=== PATIENT | male | born 1955 | race Caucasian/White ===

== ENCOUNTER → 2016-06-17 | Outpatient (CLI) | payer OTHER ==
[~2016-06-17] MED LIST: ACT30 PO; GLC500 PO; GLY/5 PO
[2016-06-18 06:46] LABS: ESTIMATED AVERAGE GLUCOSE 246 mg/dl; HA1C FLAG Normal (Normal)
== END | disposition home or self-care (01) ==
LOC: C.LAB1850 15:07
PROVIDERS: ATTEND Nurse Practitioner Adult Health
DX: E11.65 Type 2 diabetes mellitus with hyperglycemia (principal)

== ENCOUNTER → 2016-06-24 | Outpatient (CLI) | payer OTHER ==
[2016-06-24 16:54] LABS: LYME DISEASE AB IGG NEG (NEG)
[2016-06-24 16:55] LABS: LYME DISEASE AB IGM EQUIVOCAL (NEG)
[2016-06-30 00:24] LABS: 18KDIGG BAND NONREACTIVE (NONREACTIVE); 23KDIGG BAND NONREACTIVE (NONREACTIVE); 23KDIGM BAND NONREACTIVE (NONREACTIVE); 28KDIGG BAND NONREACTIVE (NONREACTIVE); 30KDIGG BAND NONREACTIVE (NONREACTIVE); 39KDIGG BAND NONREACTIVE (NONREACTIVE); 39KDIGM BAND NONREACTIVE (NONREACTIVE); 41KDIGG BAND REACTIVE (NONREACTIVE); 41KDIGM BAND NONREACTIVE (NONREACTIVE); 45KDIGG BAND NONREACTIVE (NONREACTIVE); 58KDIGG BAND NONREACTIVE (NONREACTIVE); 66KDIGG BAND NONREACTIVE (NONREACTIVE); 93KDIGG BAND NONREACTIVE (NONREACTIVE)
== END | disposition home or self-care (01) ==
LOC: C.LAB1850 14:03
PROVIDERS: ATTEND Family Medicine
DX: Z77.21 Contact with and (suspected) exposure to potentially hazardous body fluids (principal); T14.8 Other injury of unspecified body region; W57.XXXA Bitten or stung by nonvenomous insect and other nonvenomous arthropods, initial encounter

== ENCOUNTER → 2016-09-16 | Outpatient (CLI) | payer OTHER ==
[2016-09-16 14:51] LABS: ALT/SGPT 26 U/L (12-78); BLOOD UREA NITROGEN 19 mg/dl (7-18); BUN/CREATININE RATIO 17.6 (10-20); CALCIUM 9.3 mg/dl (8.5-10.1); CARBON DIOXIDE 25 mmol/L (21-32); CHLORIDE 106 mmol/L (98-107); CHOLESTEROL 178 mg/dl (0-200); GLUCOSE 182 mg/dl (70-99); POTASSIUM 4.8 mmol/L (3.5-5.1); SODIUM 140 mmol/L (136-145); TRIGLYCERIDES 209 mg/dl (0-150); VERY LOW DENSITY LIPOPROT CALC 42 mg/dl
[2016-09-16 15:01] LABS: ALB/GLOB RATIO 0.9 (0.9-2); ALKALINE PHOSPHATASE 74 U/L (45-117); AST/SGOT 15 U/L (15-37); CHOLESTEROL/HDL RATIO 4.5; HDL CHOLESTEROL 40 mg/dl; LDL CHOLESTEROL CALCULATED 96 mg/dl
[2016-09-16 15:15] LABS: ESTIMATED AVERAGE GLUCOSE 206 mg/dl; HA1C FLAG Normal (Normal)
[2016-09-16 15:29] LABS: RATIO 61.4 mcg/mg (0-30.0)
== END | disposition home or self-care (01) ==
LOC: C.LAB1850 13:11
PROVIDERS: ATTEND Nurse Practitioner Adult Health
DX: E78.5 Hyperlipidemia, unspecified (principal); E11.65 Type 2 diabetes mellitus with hyperglycemia; E03.9 Hypothyroidism, unspecified; E83.52 Hypercalcemia

== ENCOUNTER → 2016-12-25 | Outpatient (CLI) | payer OTHER ==
[2016-12-25 17:42] LABS: RATIO 26.2 mcg/mg (0-30.0)
[2016-12-26 07:37] LABS: ESTIMATED AVERAGE GLUCOSE 189 mg/dl; HA1C FLAG Normal (Normal)
== END | disposition home or self-care (01) ==
LOC: C.LAB1850 15:27
PROVIDERS: ATTEND Nurse Practitioner Adult Health
DX: E11.65 Type 2 diabetes mellitus with hyperglycemia (principal); Z79.4 Long term (current) use of insulin

== ENCOUNTER → 2017-03-23 | Outpatient (CLI) | payer OTHER ==
--- NOTE | 2017-03-25 08:55 | POLYSOMNOGRAPH REPORT ---
CLINICAL DATA: A 61-year-old male with BMI of [address] Weinberg and Janet Howe for evaluation of insomnia and daytime somnolence. He used to work on third shift and still has difficulty sleeping normally. On the evening of 03/23/2017, a home sleep apnea test was performed using a [employer] type 3 monitor. RECORDING RESULTS: Total recording time was 9.6 hours. The patient's monitoring time and estimated sleep time was 8.1 hours. RESPIRATORY DATA: There was no evidence of clinically significant sleep apnea/hypopnea seen. The ANNABELLA was 2.4. There was 1 central apneic episode and 18 hypopneic episodes recorded. The longest respiratory event was 22 seconds. OXIMETRY DATA: Transient hypoxemia was seen. Oxygen adore was 85%. Mean saturation was 93%. Time below 89% was 4 minutes. HEART RATE DATA: Heart rates ranged from 40-63 beats per minute. SNORING DATA: Snoring was recorded intermittently throughout the night. IMPRESSION: No evidence of clinically significant sleep apnea/hypopnea or nocturnal hypoxemia to explain this patient's symptoms. RECOMMENDATIONS: The patient should continue to practice good sleep hygiene. If insomnia is considered as the diagnosis, treatment for insomnia may need to be considered. IMTIAZ
== END | disposition home or self-care (01) ==
LOC: C.NEUR 11:11
PROVIDERS: ATTEND Internal Medicine
DX: R40.0 Somnolence (principal); G47.9 Sleep disorder, unspecified

== ENCOUNTER → 2017-09-03 | Outpatient (CLI) | payer OTHER | END | disposition home or self-care (01) | LOC: C.LAB1850 16:24 | PROVIDERS: ATTEND Internal Medicine | DX: Z12.5 Encounter for screening for malignant neoplasm of prostate (principal); E11.65 Type 2 diabetes mellitus with hyperglycemia ==

== ENCOUNTER → 2018-01-03 | Outpatient (CLI) | payer OTHER ==
[2018-01-03 17:32] LABS: ALKALINE PHOSPHATASE 71 U/L (45-117); ALT/SGPT 30 U/L (12-78); AST/SGOT 24 U/L (15-37); BLOOD UREA NITROGEN 19 mg/dl (7-18); CALCIUM 9.5 mg/dl (8.5-10.1); CARBON DIOXIDE 28 mmol/L (21-32); CHOLESTEROL 185 mg/dl (0-200); CREATININE 1.48 mg/dl (0.60-1.40); GLUCOSE 149 mg/dl (70-99); LDL CHOLESTEROL CALCULATED 116 mg/dl; POTASSIUM 4.6 mmol/L (3.5-5.1); SODIUM 140 mmol/L (136-145); TOTAL PROTEIN 8.1 gm/dl (6.4-8.2)
[2018-01-04 06:07] LABS: HEMOGLOBIN A1C 7.1 % (4.5-5.6)
== END | disposition home or self-care (01) ==
LOC: C.LAB1850 15:35
PROVIDERS: ATTEND Nurse Practitioner Adult Health
DX: Z00.00 Encounter for general adult medical examination without abnormal findings (principal); E78.5 Hyperlipidemia, unspecified; E11.65 Type 2 diabetes mellitus with hyperglycemia; E03.9 Hypothyroidism, unspecified; E55.9 Vitamin D deficiency, unspecified

== ENCOUNTER 2024-02-17 16:21 | Observation (INO) ==
[2024-02-17 16:57] LABS: Basophils # (auto) 0.05 K/uL (0.00-0.20); Basophils % (auto) 0.6 %; Eosinophils # (auto) 0.14 K/uL (0.00-0.50); Eosinophils % (auto) 1.7 %; Hematocrit (blood only) 41.5 % (42.0-52.0); Hemoglobin 13.2 g/dl (14.0-18.0); Immature Granulocytes # (auto) 0.01 K/uL (0.01-0.20); Immature Granulocytes % (auto) 0.1 %; Lymphocytes # (auto) 1.68 K/uL (1.20-3.40); Lymphocytes % (auto) 20.8 %; Mean Corpuscular Hemoglobin 29.2 pg (25.0-34.0); Mean Corpuscular Hgb Conc 31.8 g/dL (32.0-36.0); Mean Corpuscular Volume 91.8 fL (80.0-100.0); Mean Platelet Volume 10.7 fL (9.4-12.4); Monocytes # (auto) 0.55 K/uL (0.11-0.59); Monocytes % (auto) 6.8 %; Neutrophils # (auto) 5.66 K/uL (1.40-6.50); Platelet Count 141 K/uL (130-400); RDW Coefficient of Variation 12.8 % (11.5-14.5); Red Blood Count 4.52 M/uL (4.70-6.10); White Blood Count 8.09 K/ul (4.8-10.8)
[2024-02-17 17:28] LABS: Albumin Globulin Ratio 1.3 (0.9-2); BUN Creatinine Ratio 16.7 (10-20); Bilirubin,Total 0.5 mg/dl (0.2-1.0); Calcium 8.9 mg/dl (8.6-10.3); Creatinine Clr Calc Pharmacy 41.8 ml/min; Est GFR (African American) 33.1 ml/min; Est GFR (Non-African American) 28.6 ml/min; Magnesium 1.6 mg/dl (1.7-2.4); Potassium 4.9 mmol/L (3.5-5.1)
--- NOTE | 2024-02-17 17:28 | XRay Report ---
XR chest 1V not portable HISTORY: 68 years-old Male Sepsis COMPARISON: CT 02/15/2024 TECHNIQUE: AP view of the chest FINDINGS: Cardiomediastinal and hilar silhouettes are within normal limits. Eventration of the right diaphragm. Bones appear grossly intact. IMPRESSION: No acute process. ACT 112: Negative or not required by law. The above report was generated using voice recognition software. It may contain grammatical, syntax o r spelling errors. Electronically signed by: Fransisco Briscoe M.D. 02/17/2024 5:26 PM
[2024-02-17 17:30] LABS: Partial Thromboplastin Time 26 Seconds (21-31); Prothrombin Time 11.2 Seconds (9.0-12.0)
[2024-02-17 17:33] LABS: Troponin I High Sensitivity 10.5 pg/ml (0-20)
[2024-02-17 17:38] LABS: Appearance Urine Clear (Clear); Bacteria Urine Automated None Seen (None Seen); Bilirubin Urine Negative (Negative); Blood Urine Trace (Negative); Color Urine Yellow; Epithelial Cell Urine Auto 0-2 /hpf (0-2); Glucose Urine UA 3+ (Negative); Ketones Urine Trace (Negative); Leukocyte Esterase Urine Negative (Negative); Nitrite Urine Negative (Negative); Protein Urine 2+ (Negative); RBC Urine Automated 0-2 /hpf (0-2); Specific Gravity Urine 1.025 (1.000-1.030); Urobilinogen Urine Negative (Negative); WBC Urine Automated 0-5 /hpf (0-5)
[2024-02-17] MEDS: SODIUM CHLORIDE 0.9% 2,000 ML IV ONE (18:16)
--- NOTE | 2024-02-17 18:54 | Emergency Department Note ---
Impression & Plan LOU (acute kidney injury), Hydronephrosis, Calculus of distal left ureter, Hypomagnesemia ED Provider Note HISTORY OF PRESENT ILLNESS: Patient is a 68-year-old male presenting with general malaise. Patient was seen 2 days ago and found to have an obstructive kidney stone with an LOU. He left AGAINST MEDICAL ADVICE from the hospital as he had family obligations. He had a follow-up with his doctor today and was referred to the emergency department given his worsening symptoms. He reports that he has been feeling generally unwell for the last 24 hours. Denies any abdominal pain. Denies any dysuria or hematuria. He reports he has had a slight headache over the last 24 hours. Denies any chest pain or shortness of breath. ROS: as above PHYSICAL EXAM: Constitutional: Patient appears in no acute distress. HENT: Head: Normocephalic and atraumatic. Eyes: EOMI, PERRL Mouth/Throat: Mucous membranes moist. Neck: Trachea midline. Neck supple. Cardiovascular: RRR, No murmurs, rubs or gallops. Intact distal pulses. Pulmonary/Chest: No respiratory distress. Breath sounds clear and equal bilaterally. No wheezes or rales. Abdominal: Abdomen soft, no tenderness, rebound or guarding. Musculoskeletal: No edema, tenderness or deformity noted. Skin: Warm and dry. No rash, erythema, pallor or cyanosis Psychiatric: Appropriate mood and affect for situation. Neurological: Alert and keenly responsive. CN II-XII grossly intact, moving all extremities equally and fully. MDM: - Vitals signs showed tachycardia - History obtained via patient. History as above. - Chronic conditions affecting care: HLD; hypothyroidism; DM-2; CKD; HTN; morbi obesity - Differential diagnoses include, but are not limited to: Acute renal failure; UTI; sepsis; hydronephrosis - Order placed for continuous cardiac monitoring. At this time, monitor showed rate of 79 bpm with normal sinus rhythm, per my interpretation. - External medical records reviewed. Primary care visit note dated today was reviewed. Patient was seen in clinic for follow-up from the ER. He was complaining of progression of fatigue, body aches and chills and noted to have concern for complicated urinary tract infection. They report that he had EKG changes concerning for hyperkalemia. - EKG interpreted by myself showed normal sinus rhythm. Rate tachycardic at 103 bpm. QT 328. No acute ischemic changes. - Laboratory workup interpreted by myself showed normal WBC; stable electrolytes other than slight hypomagnesemia (Mg 1.6); LOU (Cr 2.27 - increased from 1.95 forty-eight hours ago); hyperglycemia (glucose 266); normal lactate; normal procalcitonin - UA negative for infection - CXR negative for pneumonia, per my interpretation - CT abdomen/pelvis wo contrast showed left-sided hydronephrosis secondary to a 0.4 cm distal left ureter calculus - Viral respiratory panel negative - Patient given 2L NS in ER. - Discussed case with urologist application technician, Dr. Wright, at 20:50. Recommended IV fluid hydration to flush the system. He will take a look at the imaging to see if the patient will require a stent. - Discussion was had with child support case officer about patient's case and need for admission - Hospitalist, Dr. Huston, consulted for admission - [facility] ASSESSMENT AND PLAN: Diagnosis: LOU; left hydronephrosis; hypomagnesemia; distal left ureteral stone Plan: admit Past Med/Surg History Problem List (Updated 02/17/24 @ 21:26 by Prerna Mcleod MD) Hypomagnesemia (Acute) Calculus of distal left ureter (Acute) Hydronephrosis (Acute) LOU (acute kidney injury) (Acute) Acute hyperkalemia (Acute) Hydronephrosis (Acute) Renal colic (Acute) LOU (acute kidney injury) (Acute) Renal colic Poorly controlled type 2 diabetes mellitus Dyslipidemia Serum potassium elevated Vitamin D deficiency Hypertension Chronic kidney disease Dietary counseling and surveillance Obesity Metabolic syndrome Controlled type 2 diabetes mellitus with neurologic complication, with long-term current use of insulin Elevated blood pressure reading in office without diagnosis of hypertension Hyperlipidemia Hypothyroid Insomnia Erectile dysfunction Nonproliferative diabetic retinopathy Medical History Chronic kidney disease Diverticulosis Osteoarthritis of knees, bilateral Pulmonary embolism Recurrent kidney stones Type II diabetes with intermediate designer use of insulin Surgical History Hx of appendectomy Family History Mother Diabetes Breast cancer Father Hypertension Sister Breast cancer Diabetes Grandfather Myocardial infarction Denies family history of Ovarian cancer Prostate cancer Colorectal cancer Social History Smoking Status: Never smoker Second Hand Exposure: Yes; Do You Dip or Chew Tobacco: No; Hx Alcohol Use: Yes (wine twice a year) Hx Substance Use: No Preferred Language: Yoruba Visual Impairment: Partially Limited Hearing Ability: Normal Beliefs That Will Affect Care: None marital status: Current Living Situation: Alone current occupational status: retired current occupation: retired security officer, 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 How many Children do You have: 4 How many Children do You have Comment: 1 boy 3 girls Feels Safe at Home: Yes Childhood Exposure to Second-Hand Smoke: Yes Diet: regular during the past year weight has: increased > 10 lbs Dental Care, Regularly: Yes Physical Activity Frequency: 3-4 Times per Week Seatbelt Use: always Sunscreen Use: Yes Allergies Allergies Allergy/AdvReac Type Severity Reaction Status Date / Time morphine Allergy "I felt Verified 02/17/24 13:47 like I was falling" Home Meds Home Medications Medication Instructions Recorded Confirmed blood sugar diagnostic (Living Proof No #10 ea 03/01/19 02/17/24 Coding strips) cholecalciferol (vitamin D3) 125 2,000 unit PO DAILY 02/10/22 02/17/24 mcg (5,000 unit) capsule chromium picolinate 200 mcg tablet 0 mcg PO DAILY 02/15/24 02/17/24 cyanoco,mecobalamin 1,000 1 tab PO DAILY 02/15/24 02/17/24 mcg-folic acid 200 mcg disintegrating tablet insulin glargine 100 unit/mL (3 54 unit subcut QAM 02/15/24 02/17/24 mL) subcutaneous pen (Lantus Solostar U-100 Insulin) levothyroxine 125 mcg capsule 125 mcg PO DAILYBB 02/15/24 02/17/24 lisinopril 10 mg tablet 10 mg PO QAM 02/15/24 02/17/24 mecobalamin (vitamin B12) 1,000 1,000 mcg PO DAILY 02/15/24 02/17/24 mcg disintegrating tablet,sublingual zinc gluconate 50 mg tablet 100 mg PO DAILY 02/15/24 02/17/24 Previous Rx's Medication Instructions Recorded Admelog SoloStar U-100 Insulin 100 1 sliding scale dose subcut 09/03/23 Insulin lispro 100 unit/mL USEASDIRECTD #15 mL subcutaneous pen (insulin lispro) metformin 500 mg tablet 1,000 mg (2 x 500 mg) PO BID 90 10/04/23 days #120 tabs pioglitazone 15 mg tablet (Actos) 15 mg PO DAILY #30 tabs 11/11/23 rosuvastatin 40 mg tablet 40 mg PO DAILY #30 tabs 11/23/23 dulaglutide 0.75 mg/0.5 mL 0.75 mg (0.5 mL) subcut Q7D #6 mL 12/15/23 subcutaneous pen injector (Trulicity) BD Ultra-Fine Jazmine Pen Needle 32 #200 ea 02/02/24 gauge x 5/32" (pen needle, diabetic) ciprofloxacin HCl 500 mg tablet 500 mg PO Q12H #20 tabs 02/15/24 (Cipro) tamsulosin 0.4 mg capsule (Flomax) 0.4 mg PO DAILY #10 caps 02/15/24 Results & Data (ED) Vital Signs Vital Signs - 24 hr 02/17/24 16:33 02/17/24 17:22 02/17/24 17:25 Temperature 36.9 C Temperature Source Temporal Artery Scan Pulse Rate 107 H 91 H Pulse Rate [Apical] 90 Pulse Rhythm [Apical] Pulse Strength [Apical] Respiratory Rate 18 18 Respiratory Effort / Characteristics Non-Labored Spontaneous Non-Labored Respiratory Depth Normal Normal Respiratory Pattern Regular Regular Blood Pressure 129/75 Blood Pressure [Right Arm] 124/65 Blood Pressure Mean 93 Blood Pressure Mean [Right Arm] 84 Blood Pressure Position [Right Arm] Pulse Oximetry 96 98 Oxygen Delivery Method Room Air Room Air Sepsis Recent Fever Within 48 Hours No Sepsis New/Unexplained Change in Mental Status No Sepsis Action Taken by Nursing No Action Required 02/17/24 17:29 02/17/24 19:30 02/17/24 21:00 Temperature Temperature Source Pulse Rate 94 H Pulse Rate [Apical] 78 79 Pulse Rhythm [Apical] Regular Regular Pulse Strength [Apical] Normal Normal Respiratory Rate 18 16 20 Respiratory Effort / Characteristics Non-Labored Spontaneous Non-Labored Spontaneous Respiratory Depth Normal Normal Respiratory Pattern Regular Regular Blood Pressure Blood Pressure [Right Arm] 95/82 L 147/77 H Blood Pressure Mean Blood Pressure Mean [Right Arm] 86 100 Blood Pressure Position [Right Arm] Sitting Sitting Pulse Oximetry 98 98 97 Oxygen Delivery Method Room Air Room Air Room Air Sepsis Recent Fever Within 48 Hours Sepsis New/Unexplained Change in Mental Status Sepsis Action Taken by Nursing Laboratory Data 02/17/24 16:39 02/17/24 16:39 Lab Results 02/17/24 02/17/24 02/17/24 Range/Units 16:39 17:20 18:45 WBC 8.09 (4.8-10.8) K/ul RBC 4.52 L (4.70-6.10) M/uL Hgb 13.2 L (14.0-18.0) g/dl Hct 41.5 L (42.0-52.0) % MCV 91.8 (80.0-100.0) fL MCH 29.2 (25.0-34.0) pg MCHC 31.8 L (32.0-36.0) g/dL RDW Std Deviation 43.0 (36.4-46.3) fL RDW Coeff of Fran 12.8 (11.5-14.5) % Plt Count 141 (130-400) K/uL MPV 10.7 (9.4-12.4) fL Immature Gran % (Auto) 0.1 % Neut % (Auto) 70.0 % Lymph % (Auto) 20.8 % [place] % (Auto) 6.8 % Eos % (Auto) 1.7 % Baso % (Auto) 0.6 % Neut # (Auto) 5.66 (1.40-6.50) K/uL Lymph # (Auto) 1.68 (1.20-3.40) K/uL [place] # (Auto) 0.55 (0.11-0.59) K/uL Eos # (Auto) 0.14 (0.00-0.50) K/uL Baso # (Auto) 0.05 (0.00-0.20) K/uL Immature Gran # (Auto) 0.01 (0.01-0.20) K/uL PT 11.2 (9.0-12.0) Seconds INR 1.0 (0.9-1.1) APTT 26 (21-31) Seconds PTT Ratio 1.0 Sodium 137 (136-145) mmol/L Potassium 4.9 (3.5-5.1) mmol/L Chloride 107 (98-107) mmol/L Carbon Dioxide 22 (21-32) mmol/L Anion Gap 8 (3-11) BUN 38 H (6-23) mg/dl Creatinine 2.27 H (0.6-1.4) mg/dl Est Cr Clr Drug Dosing 41.8 ml/min Est GFR ( Amer) 33.1 ml/min Est GFR (Non-Af Amer) 28.6 ml/min BUN/Creatinine Ratio 16.7 (10-20) Glucose 266 H (70-99(Fasting)) mg/dl POC Glucose (70-99) mg/dl Lactate 1.7 (0.4-2.0) mmol/L Calcium 8.9 (8.6-10.3) mg/dl Magnesium 1.6 L (1.7-2.4) mg/dl Total Bilirubin 0.5 (0.2-1.0) mg/dl AST 18 (13-39) U/L ALT 17 (7-52) U/L Alkaline Phosphatase 72 (34-104) U/L Troponin I High Sens 10.5 (0-20) pg/ml Total Protein 7.0 (6.0-8.3) gm/dl Albumin 4.0 (3.4-5.0) gm/dl Globulin 3.0 (2.5-4.0) gm/dl Albumin/Globulin Ratio 1.3 (0.9-2) Procalcitonin < 0.02 (0-0.5) ng/ml Urine Color Yellow Urine Appearance Clear (Clear) Urine pH 5.0 (4.5-7.5) Ur Specific [place] 1.025 (1.000-1.030) Urine Protein 2+ H (Negative) Urine Glucose (UA) 3+ H (Negative) Urine Ketones Trace H (Negative) Urine Blood Trace H (Negative) Urine Nitrite Negative (Negative) Urine Bilirubin Negative (Negative) Urine Urobilinogen Negative (Negative) Ur Leukocyte Esterase Negative (Negative) Urine WBC (Auto) 0-5 (0-5) /hpf Urine RBC (Auto) 0-2 (0-2) /hpf U Hyaline Cast (Auto) 3-5 H (0-2) /lpf U Epithel Cells (Auto) 0-2 (0-2) /hpf Urine Bacteria (Auto) None Seen (None Seen) Adenovirus (PCR) Not Detected (NotDetected) B. pertussis DNA (PCR) Not Detected (NotDetected) B.parapertussis DNA PCR Not Detected (NotDetected) C. pneumoniae DNA (PCR) Not Detected (NotDetected) Coronavirus OC43 (PCR) Not Detected (NotDetected) Coronavirus HKU1 (PCR) Not Detected (NotDetected) Coronavirus 229E (PCR) Not Detected (NotDetected) SARS-CoV-2 (PCR) Not Detected (NotDetected) Coronavirus NL63 (PCR) Not Detected (NotDetected) Human Metapneumovir PCR Not Detected (NotDetected) Influenza Type A (PCR) Not Detected (NotDetected) Influenza Type B (PCR) Not Detected (NotDetected) M. pneumoniae (PCR) Not Detected (NotDetected) Parainfluenza 1 (PCR) Not Detected (NotDetected) Parainfluenza 2 (PCR) Not Detected (NotDetected) Parainfluenza 3 (PCR) Not Detected (NotDetected) Parainfluenza 4 (PCR) Not Detected (NotDetected) RSV (PCR) Not Detected (NotDetected) Entero/Rhino (PCR) Not Detected (NotDetected) 02/17/24 Range/Units 20:24 WBC (4.8-10.8) K/ul RBC (4.70-6.10) M/uL Hgb (14.0-18.0) g/dl Hct (42.0-52.0) % MCV (80.0-100.0) fL MCH (25.0-34.0) pg MCHC (32.0-36.0) g/dL RDW Std Deviation (36.4-46.3) fL RDW Coeff of Fran (11.5-14.5) % Plt Count (130-400) K/uL MPV (9.4-12.4) fL Immature Gran % (Auto) % Neut % (Auto) % Lymph % (Auto) % [place] % (Auto) % Eos % (Auto) % Baso % (Auto) % Neut # (Auto) (1.40-6.50) K/uL Lymph # (Auto) (1.20-3.40) K/uL [place] # (Auto) (0.11-0.59) K/uL Eos # (Auto) (0.00-0.50) K/uL Baso # (Auto) (0.00-0.20) K/uL Immature Gran # (Auto) (0.01-0.20) K/uL PT (9.0-12.0) Seconds INR (0.9-1.1) APTT (21-31) Seconds PTT Ratio Sodium (136-145) mmol/L Potassium (3.5-5.1) mmol/L Chloride (98-107) mmol/L Carbon Dioxide (21-32) mmol/L Anion Gap (3-11) BUN (6-23) mg/dl Creatinine (0.6-1.4) mg/dl Est Cr Clr Drug Dosing ml/min Est GFR ( Amer) ml/min Est GFR (Non-Af Amer) ml/min BUN/Creatinine Ratio (10-20) Glucose (70-99(Fasting)) mg/dl POC Glucose 88 (70-99) mg/dl Lactate (0.4-2.0) mmol/L Calcium (8.6-10.3) mg/dl Magnesium (1.7-2.4) mg/dl Total Bilirubin (0.2-1.0) mg/dl AST (13-39) U/L ALT (7-52) U/L Alkaline Phosphatase (34-104) U/L Troponin I High Sens (0-20) pg/ml Total Protein (6.0-8.3) gm/dl Albumin (3.4-5.0) gm/dl Globulin (2.5-4.0) gm/dl Albumin/Globulin Ratio (0.9-2) Procalcitonin (0-0.5) ng/ml Urine Color Urine Appearance (Clear) Urine pH (4.5-7.5) Ur Specific [place] (1.000-1.030) Urine Protein (Negative) Urine Glucose (UA) (Negative) Urine Ketones (Negative) Urine Blood (Negative) Urine Nitrite (Negative) Urine Bilirubin (Negative) Urine Urobilinogen (Negative) Ur Leukocyte Esterase (Negative) Urine WBC (Auto) (0-5) /hpf Urine RBC (Auto) (0-2) /hpf U Hyaline Cast (Auto) (0-2) /lpf U Epithel Cells (Auto) (0-2) /hpf Urine Bacteria (Auto) (None Seen) Adenovirus (PCR) (NotDetected) B. pertussis DNA (PCR) (NotDetected) B.parapertussis DNA PCR (NotDetected) C. pneumoniae DNA (PCR) (NotDetected) Coronavirus OC43 (PCR) (NotDetected) Coronavirus HKU1 (PCR) (NotDetected) Coronavirus 229E (PCR) (NotDetected) SARS-CoV-2 (PCR) (NotDetected) Coronavirus NL63 (PCR) (NotDetected) Human Metapneumovir PCR (NotDetected) Influenza Type A (PCR) (NotDetected) Influenza Type B (PCR) (NotDetected) M. pneumoniae (PCR) (NotDetected) Parainfluenza 1 (PCR) (NotDetected) Parainfluenza 2 (PCR) (NotDetected) Parainfluenza 3 (PCR) (NotDetected) Parainfluenza 4 (PCR) (NotDetected) RSV (PCR) (NotDetected) Entero/Rhino (PCR) (NotDetected) Administered Medications Magnesium Sulfate/Dextrose (Magnesium Sulfate / D5w) 1 gm in 100 mls @ 50 mls/hr IV Q2H FELICITAS Stop: 02/17/24 23:59 Last Admin: 02/17/24 21:08 Dose: 50 mls/hr Documented By: KAEL Insulin Aspart (Insulin Aspart Per Unit Charge) 0 units SC Q6 FELICITAS Stop: 03/18/24 19:44 Last Admin: 02/17/24 20:27 Dose: Not Given Documented By: KAEL Discontinued Medications Sodium Chloride (Nss) 2,000 mls @ 999 mls/hr IV .Q2H1M ONE Stop: 02/17/24 19:34 Last Infusion: 02/17/24 20:18 Dose: Infused Documented By: Admin: 02/17/24 18:16 Dose: 999 mls/hr Documented By: STEPHANIE Ceftriaxone Sodium (Rocephin) 2,000 mg in 50 mls @ 100 mls/hr IV NOW STA Stop: 02/17/24 20:49 Last Infusion: 02/17/24 21:03 Dose: Infused Documented By: Admin: 02/17/24 20:31 Dose: 100 mls/hr Documented By: KAEL Imaging Data Radiologist's Impression: Chest X-Ray 02/17/24 16:37 XR chest 1V not portable HISTORY: 68 years-old Male Sepsis COMPARISON: CT 02/15/2024 TECHNIQUE: AP view of the chest FINDINGS: Cardiomediastinal and hilar silhouettes are within normal limits. Eventration of the right diaphragm. Bones appear grossly intact. IMPRESSION: No acute process. ACT 112: Negative or not required by law. The above report was generated using voice recognition software. It may contain grammatical, syntax or spelling errors. Electronically signed by: Fransisco Briscoe M.D. 02/17/2024 5:26 PM Abdomen/Pelvis CT 02/17/24 18:42 Exam(s): CT ABDOMEN + PELVIS Without Contrast EXAM: CT Abdomen and Pelvis Without Intravenous Contrast CLINICAL HISTORY: Reason for exam: LOU; recent obstructive stone. TECHNIQUE: Axial computed tomography images of the abdomen and pelvis without intravenous contrast. CTDI is 28.12 mGy and DLP is 1540.72 mGy-cm. Automated exposure control was utilized for the study. A dose lowering technique was utilized adhering to the principles of ALARA. COMPARISON: 02/15/2024 FINDINGS: Lung bases: Unremarkable. No mass. No consolidation. ABDOMEN: Liver: Unremarkable. Gallbladder and bile ducts: Unremarkable. No calcified stones. No ductal dilation. Pancreas: Unremarkable. No ductal dilation. Spleen: Unremarkable. No splenomegaly. Adrenals: Unremarkable. No mass. Kidneys and ureters: mild left periureteral and perinephric stranding with left-sided hydronephrosis secondary to a 0.4 cm distal left ureteral calculus allowing for subtle differences in technique the stone has slightly migrated distally and is closer to the UVJ and on the prior exam. No right-sided hydronephrosis. Stomach and bowel: Unremarkable. No obstruction. No mucosal thickening. PELVIS: Appendix: No findings to suggest acute appendicitis. Bladder: Unremarkable. No stones. Reproductive: Unremarkable as visualized. ABDOMEN and PELVIS: Intraperitoneal space: Unremarkable. No free air. No significant fluid collection. Bones/joints: No acute fracture. No dislocation. Soft tissues: Unremarkable. Vasculature: Unremarkable. No abdominal aortic aneurysm. Lymph nodes: Unremarkable. No enlarged lymph nodes. IMPRESSION: Left-sided hydronephrosis with perinephric and periureteral stranding secondary to a distal left ureteral calculus. This has migrated slightly since the prior exam. Electronically signed by: Stu Paulino MD 02/17/24 21:19 PM Discharge Plan Visit Data Chief Complaint: Kidney Stone Stated Complaint: KIDNEY STONE ED Provider: Prerna Mcleod Discharge Problem: LOU (acute kidney injury), Hydronephrosis, Calculus of distal left ureter, Hypomagnesemia Forms Stand Alone Forms: My [facility] [employer] Prescriptions Prescriptions: No Action insulin lispro [Admelog SoloStar U-100 Insulin] 100 unit/mL insulin pen 1 sliding scale dose subcut USEASDIRECTD MDD 50 UNITS Qty: 15 5RF metformin 500 mg tablet 1,000 mg PO BID 90 Days Qty: 120 5RF pioglitazone [Actos] 15 mg tablet 15 mg PO DAILY Qty: 30 5RF (DME) pen needle, diabetic [BD Ultra-Fine Jazmine Pen Needle] 32 gauge x 5/32" needle See Dose Instructions .ROUTE .MEDSUPPLY Qty: 200 4RF Rx Instructions: inject up to 4 injections a day (DME) Prodigy No Coding strip See Dose Instructions .ROUTE .MEDSUPPLY Qty: 10 Rx Instructions: Test 3 times daily rosuvastatin 40 mg tablet 40 mg PO DAILY Qty: 30 11RF cholecalciferol (vitamin D3) 125 mcg (5,000 unit) capsule 2,000 unit PO DAILY Trulicity 0.75 mg/0.5 mL pen injector 0.75 mg subcut Q7D Qty: 6 1RF Rx Instructions: Inject Trulicity .75mg every Wednesday levothyroxine 125 mcg capsule 125 mcg PO DAILYBB mecobalamin (vitamin B12) 1,000 mcg Tablet,Disintegrating 1,000 mcg PO DAILY insulin glargine [Lantus Solostar U-100 Insulin] 100 unit/mL (3 mL) insulin pen 54 unit subcut QAM lisinopril 10 mg tablet 10 mg PO QAM [id number] 1,000-200 mcg Tablet,Disintegrating 1 tab PO DAILY zinc gluconate 50 mg Tablet 100 mg PO DAILY chromium picolinate 200 mcg Tablet 0 mcg PO DAILY ciprofloxacin HCl [Cipro] 500 mg tablet 500 mg PO Q12H Qty: 20 0RF tamsulosin [Flomax] 0.4 mg capsule 0.4 mg PO DAILY Qty: 10 0RF Referrals Referrals: Jayy Weinberg MD [Primary Care Provider] -
--- NOTE | 2024-02-17 19:24 | History & Physical Report ---
Date of Service February 17, 2024 Assessment & Plan (1) LOU (acute kidney injury): Plan: Admit to med/tele Currently stable nontoxic-appearing Presented back to the ED for the second time in the past 48 hours due to ongoing symptoms related to his known obstructive 3 mm left ureteral kidney stone causing hydronephrosis and LOU Patient's urine on 02/15/2024 appeared infected, was given a dose of ceftriaxone and has been taking p.o. ciprofloxacin since discharge home. Creatinine continues to rise, currently at 2.27 (baseline zero 1.3) Will follow-up with final results of CT abdomen pelvis The ED did reach out to urology, will keep patient n.p.o. except meds until we confirm he is not going to the OR tonight for stent placement Currently receiving 2 L NSS in the ED, if n.p.o. overnight will order maintenance fluids Avoid nephrotoxic agents, will hold home lisinopril Bilateral SCDs for DVT prophylaxis AM CBC, BMP, mag, PT/INR (2) Hydronephrosis: Plan: Patient with left hydroureteronephrosis due to 3 mm obstructing left ureteral stone Urology has been consulted Will continue Flomax and order urine strainer Rest of care per LOU plan (3) Poorly controlled type 2 diabetes mellitus: Plan: Will monitor BSG every 6 hours while NPO, goal is [id number] Normally takes 54 units SQ Lantus in the a.m., will convert to 20 units twice daily for now as we unsure how much he will be eating Start CF of 35 and CR of 12 every 6 hours Adjust regimen as needed (4) Hypertension: Plan: Currently stable Holding lisinopril for now with LOU Resume lisinopril when renal function is stable (5) Hypothyroid: Plan: Continue levothyroxine Plan The patient was discussed with Dr. Huston at the time of the admission History of Present Illness Chief Complaint: Headache Primary Care Provider: Jayy Weinberg MD Nomi is a 60-year-old male with past medical history significant for DM type II, hypertension, hyperlipidemia, hypothyroidism, and previous kidney st ones who presented to the [facility] ED on 02/17/2024 due to headache and recently diagnosed obstructing kidney stone. Patient was noted to be tachycardic on arrival with heart rate of 107 but otherwise stable. Labs were significant for creatinine of 2.27 (baseline is near 1.3), mag 1.6, Pro-Eric within normal limits, and UA with 2+ protein, 3+ glucose, trace ketones/blood, and 3-5 hyaline casts. Patient initially presented to the [facility] ED on 02/15/2024 with complaints of abdominal pain. He was noted to have a LOU at that time with creatinine of 1.[address] and concerns for UTI. CT abdomen pelvis without contrast at that time was read as an obstructive distal left ureteral stone with associated hydronephrosis and hydroureter. The patient had been offered a dmission for ongoing treatment but wished to be discharged home on conservative regimen. He was given a dose of ceftriaxone and 1 L normal saline in the ED and then discharged with a course of ciprofloxacin, tamsulosin, Zofran, and as needed oxycodone. He presented back to his PCP today for ongoing symptoms along with tachycardia and was instructed to present back to the ED for further treatment. Repeat CT of the abdomen pelvis shows today Has been obtained but yet to be read. Prior to admission the patient was given 2 L normal saline. Patient was sitting in bed in no acute distress at the time of exam. Confirms history above. States that since being discharged from the ED on 02/15/2024 his abdominal pain has improved and he has had intermittent episodes of very mild left flank pain. Denies any issues with urination and denies recent hematuria. Denies recent fever may have had chills last night. States that he has been having intermittent headaches since last night. Has continued to take the ciprofloxacin and Flomax as prescribed on discharge on 02/15/2024. Explained that he may need to be taken to the OR for stent placement but unsure when this would be done. Confirms he is a full code and he would want his mother to make medical decisions for him if he cannot make them himself. Please refer to Dr. Huston's attestation for any changes to treatment plan Allergies Allergy/AdvReac Type Severity Reaction Status Date / Time morphine Allergy "I felt Verified 02/17/24 13:47 like I was falling" Home Medications Medication Instructions Recorded Confirmed Type blood sugar diagnostic (Prodigy No #10 ea 03/01/19 02/17/24 History Coding strips) cholecalciferol (vitamin D3) 125 2,000 unit PO DAILY 02/10/22 02/17/24 History mcg (5,000 unit) capsule Admelog SoloStar U-100 Insulin 100 1 sliding scale dose subcut 09/03/23 02/17/24 Rx Insulin lispro 100 unit/mL USEASDIRECTD #15 mL subcutaneous pen (insulin lispro) metformin 500 mg tablet 1,000 mg (2 x 500 mg) PO BID 90 10/04/23 02/17/24 Rx days #120 tabs pioglitazone 15 mg tablet (Actos) 15 mg PO DAILY #30 tabs 11/11/23 02/17/24 Rx rosuvastatin 40 mg tablet 40 mg PO DAILY #30 tabs 11/23/23 02/17/24 Rx dulaglutide 0.75 mg/0.5 mL 0.75 mg (0.5 mL) subcut Q7D #6 mL 12/15/23 02/17/24 Rx subcutaneous pen inject[facility] BD Ultra-Fine Jazmine Pen Needle 32 #200 ea 02/02/24 02/17/24 Rx gauge x 5/32" (pen needle, diabetic) chromium picolinate 200 mcg tablet 0 mcg PO DAILY 02/15/24 02/17/24 History ciprofloxacin HCl 500 mg tablet 500 mg PO Q12H #20 tabs 02/15/24 02/17/24 Rx (Cipro) cyanoco,mecobalamin 1,000 1 tab PO DAILY 02/15/24 02/17/24 History mcg-folic acid 200 mcg disintegrating tablet insulin glargine 100 unit/mL (3 54 unit subcut QAM 02/15/24 02/17/24 History mL) subcutaneous pen (Lantus Solostar U-100 Insulin) levothyroxine 125 mcg capsule 125 mcg PO DAILYBB 02/15/24 02/17/24 History lisinopril 10 mg tablet 10 mg PO QAM 02/15/24 02/17/24 History mecobalamin (vitamin B12) 1,000 1,000 mcg PO DAILY 02/15/24 02/17/24 History mcg disintegrating tablet,sublingual tamsulosin 0.4 mg capsule (Flomax) 0.4 mg PO DAILY #10 caps 02/15/24 02/17/24 Rx zinc gluconate 50 mg tablet 100 mg PO DAILY 02/15/24 02/17/24 History Past Med/Surg History Problem List Hypomagnesemia (Acute) Calculus of distal left ureter (Acute) Hydronephrosis (Acute) LOU (acute kidney injury) (Acute) Acute hyperkalemia (Acute) Hydronephrosis (Acute) Renal colic (Acute) LOU (acute kidney injury) (Acute) Renal colic Poorly controlled type 2 diabetes mellitus Dyslipidemia Serum potassium elevated Vitamin D deficiency Hypertension Chronic kidney disease Dietary counseling and surveillance Obesity Metabolic syndrome Controlled type 2 diabetes mellitus with neurologic complication, with long-term current use of insulin Elevated blood pressure reading in office without diagnosis of hypertension Hyperlipidemia Hypothyroid Insomnia Erectile dysfunction Nonproliferative diabetic retinopathy Medical History Pulmonary embolism 1983 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 Diverticulosis Recurrent kidney stones Osteoarthritis of knees, bilateral Surgical History Hx of appendectomy 1977 Family History Mother Diabetes Breast cancer Father Hypertension Sister Breast cancer Diabetes Grandfather Myocardial infarction Denies family history of Ovarian cancer Prostate cancer Colorectal cancer Social History Smoking Status: Never smoker Second Hand Exposure: No; Do You Dip or Chew Tobacco: No; Hx Alcohol Use: No Hx Substance Use: No Preferred Language: Belarusian Communication Ability: Effective Visual Impairment: Partially Limited Hearing Ability: Normal Editor In Chief Required: No Beliefs That Will Affect Care: None marital status: Current Living Situation: Alone current occupational status: retired current occupation: retired promotion officer, 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 How many Children do You have: 4 How many Children do You have Comment: 1 boy 3 girls Feels Safe at Home: Yes Childhood Exposure to Second-Hand Smoke: Yes Diet: regular during the past year weight has: increased > 10 lbs Dental Care, Regularly: Yes Physical Activity Frequency: 3-4 Times per Week Seatbelt Use: always Sunscreen Use: Yes Assistive Devices: Glasses Review of Systems Review of Systems: All systems reviewed & are unremarkable except as noted in HPI & below Physical Exam Physical Exam: Physical Exam: General: In no acute distress, stated age, well-nourished, Nontoxic-appearing HEENT: Normocephalic, atraumatic, no scleral icterus, pupils around round, symmetrical, and reactive to light, moist mucus membranes, trachea midline, no thyromegaly Chest/Pulm: No respiratory distress, symmetrical chest expansion, clear breath sounds throughout Cardiac: RRR, no murmurs noted Abdomen: Negative for ascites and bruising, normoactive bowel sounds, soft, non-tender to palpation throughout : Negative CVA tenderness bilaterally Musculoskeletal: Symmetrical and without signs of acute trauma, upper and lower extremities with full ROM, no atrophy, spasticity, or flaccidity Extremities: Radial, dorsalis pedis, and posterior tibial pulses are intact and symmetrical, no edema noted in the BL LE's Skin: Warm, dry, no rashes , lesions, or scars noted Neuro: Alert and oriented to person, place, month, year, and president, no focal defects, no tremors noted Psych: No acute distress, calm and cooperative during the exam Results & Data Results & Data Vital Signs (Past 12 Hours) Vital Signs Temp Pulse Pulse Resp BP BP Pulse Ox 02/17/24 17:29 94 H 18 98 02/17/24 17:25 91 H 02/17/24 17:22 90 18 124/65 98 02/17/24 16:33 36.9 C 107 H 18 129/75 96 O2 Del Method 02/17/24 17:29 Room Air 02/17/24 17:25 02/17/24 17:22 Room Air 02/17/24 16:33 Room Air Laboratory Results Abnormal lab results 02/17/24 02/17/24 Range/Units 16:39 17:20 RBC 4.52 L (4.70-6.10) M/uL Hgb 13.2 L (14.0-18.0) g/dl Hct 41.5 L (42.0-52.0) % MCHC 31.8 L (32.0-36.0) g/dL BUN 38 H (6-23) mg/dl Creatinine 2.27 H (0.6-1.4) mg/dl Glucose 266 H (70-99(Fasting)) mg/dl Magnesium 1.6 L (1.7-2.4) mg/dl Urine Protein 2+ H (Negative) Urine Glucose (UA) 3+ H (Negative) Urine Ketones Trace H (Negative) Urine Blood Trace H (Negative) U Hyaline Cast (Auto) 3-5 H (0-2) /lpf Diagnostic Findings Chest X-Ray 02/17/24 16:37 XR chest 1V not portable HISTORY: 68 years-old Male Sepsis COMPARISON: CT 02/15/2024 TECHNIQUE: AP view of the chest FINDINGS: Cardiomediastinal and hilar silhouettes are within normal limits. Eventration of the right diaphragm. Bones appear grossly intact. IMPRESSION: No acute process. ACT 112: Negative or not required by law. The above report was generated using voice recognition software. It may contain grammatical, syntax or spelling errors. Electronically signed by: Fransisco Briscoe M.D. 02/17/2024 5:26 PM [place], [place] [phone] CT Scan Report Patient: NOMI HITCHCOCK Admit Date: 02/17/24 MR#: [id number] Address1: [address] [place] [address] Acct ID:[id number] Address2: Date: 1955 [facility] Zip: [place] [address] Age: 68 Location: ED Sex: M Room/Bed: Att Phy: Diagnosis: KIDNEY STONE Ely Phy: Jayy Weinberg MD Service Date: 02/17/24 Fam Phy: Interpreting Phy: Stu Paulino MDAdmit Phy: Ordering Phy: Prerna Mcleod MD cc: ~ Exam(s): CT ABDOMEN + PELVIS Without Contrast EXAM: CT Abdomen and Pelvis Without Intravenous Contrast CLINICAL HISTORY: Reason for exam: LOU; recent obstructive stone. TECHNIQUE: Axial computed tomography images of the abdomen and pelvis without intravenous contrast. CTDI is 28.12 mGy and DLP is 1540.72 mGy-cm. Automated exposure control was utilized for the study. A dose lowering technique was utilized adhering to the principles of ALARA. COMPARISON: 02/15/2024 FINDINGS: Lung bases: Unremarkable. No mass. No consolidation. ABDOMEN: Liver: Unremarkable. Gallbladder and bile ducts: Unremarkable. No calcified stones. No ductal dilation. Pancreas: Unremarkable. No ductal dilation. Spleen: Unremarkable. No splenomegaly. Adrenals: Unremarkable. No mass. Kidneys and ureters: mild left periureteral and perinephric stranding with left-sided hydronephrosis secondary to a 0.4 cm distal left ureteral calculus allowing for subtle differences in technique the stone has slightly migrated distally and is closer to the UVJ and on the prior exam. No right-sided hydronephrosis. Stomach and bowel: Unremarkable. No obstruction. No mucosal thickening. PELVIS: Appendix: No findings to suggest acute appendicitis. Bladder: Unremarkable. No stones. Reproductive: Unremarkable as visualized. ABDOMEN and PELVIS: Intraperitoneal space: Unremarkable. No free air. No significant fluid collection. Bones/joints: No acute fracture. No dislocation. Soft tissues: Unremarkable. Vasculature: Unremarkable. No abdominal aortic aneurysm. Lymph nodes: Unremarkable. No enlarged lymph nodes. IMPRESSION: Left-sided hydronephrosis with perinephric and periureteral stranding secondary to a distal left ureteral calculus. This has migrated slightly since the prior exam. Electronically signed by: Stu Paulino MD 02/17/24 21:19 PM Dictated: 02/17/242118 Transcribed: 02/17/242118 ECG Additional Comments: Sinus tachycardia without acute ST segment or T wave changes Code Status & VTE Plan Code Status Full code VTE Prophylaxis Plan VTE Prophylaxis will be ordered: Yes Supervising Physician Co-Signing Physician Notes Patient seen and examined, chart reviewed, case discussed with PRAVIN Michaels and I agree with the assessment and plan as above. In brief, patient is a 68yo male who initially presented to the ER on 02/14 with renal colic and elevated Cr. He was found to have a left distal ureteral stone at the UVJ. He was discharged home on Flomax, Cipro as well as Oxycodone and Zofran. He reports he has been taking the Flomax and Cipro but did not fill the Zofran or Oxycodone. He was seen by his PCP today with complaints of body aches, chills and fatigue. Tachycardic at 110bpm. He reports that his groin pain has overall improved. On exam he is afebrile, HD stable, non-toxic in appearance Skin - intact, warm and dry HEENT - MMM, Neck supple Heart - +S1/S2, regular, no m/r/g Lungs - CTA, no rales/rhonchi/wheezes Abd - obese, soft ,NT/ND, no CVA tenderness Ext - warm, well perfused Labs and images reviewed. BUN=38, Cr=2.27 - increased from prior value of 1.95 which is increased from his baseline of appx 1.3 CT of the Abdomen results as above - stone present, has migrated slightly Assessment/Plan 68yo male presenting with distal left 4mm obstructing stone with hydroureteronephrosis. Patient has had some worsening renal function as well - suspect in part to dehydration, possibly Cipro effect as well -Continue IVF -Flomax -Pain and nausea control -Urology consultation appreciated -Remainder as above PG Care Time/CCT Total # of Minutes Spent Total Time Spent with Patient: Total time spent is greater than 50% in coordination of care (as documented) at patient's floor/unit and/or counseling patient: Coding [place] [address] INT INP/OBS CARE 3/75MIN Patient Type Established Medical Decision Making High Complexity Diagnoses LOU (acute kidney injury) N17.9 Hydronephrosis N13.30 Hydronephrosis type: unspecified Poorly controlled type 2 diabetes mellitus E11.65 Hypertension I10 Hypothyroid E03.9 (2) Hydronephrosis Hydronephrosis type: unspecified Qualified Code(s): N13.30 - Unspecified hydronephrosis
[2024-02-17 19:40] LABS: Adenovirus PCR Not Detected (NotDetected); Bordetella parapertussis PCR Not Detected (NotDetected); Bordetella pertussis PCR Not Detected (NotDetected); Chlamydia pneumoniae PCR Not Detected (NotDetected); Coronavirus 229E PCR Not Detected (NotDetected); Coronavirus CoV-2 (COVID19)PCR Not Detected (NotDetected); Coronavirus HKU1 PCR Not Detected (NotDetected); Coronavirus NL63 PCR Not Detected (NotDetected); Coronavirus OC43PCR Not Detected (NotDetected); Human Metapneumovirus PCR Not Detected (NotDetected); Influenza A PCR Not Detected (NotDetected); Influenza B PCR Not Detected (NotDetected); Mycoplasma pneumoniae PCR Not Detected (NotDetected); Parainfluenza Virus 1 PCR Not Detected (NotDetected); Parainfluenza Virus 2 PCR Not Detected (NotDetected); Parainfluenza Virus 3 PCR Not Detected (NotDetected); Parainfluenza Virus 4 PCR Not Detected (NotDetected); Respiratory Syncytial VirusPCR Not Detected (NotDetected); Rhinovirus/Enterovirus PCR Not Detected (NotDetected)
[2024-02-17] MEDS ORDERED: GLUCOSE 40% GEL 15 GM TUBE PO PRN (19:43)
[2024-02-17] MEDS ORDERED: CARBOHYDRATES FOR HYPOGLYCEMIA PO PRN (19:43)
[2024-02-17] MEDS ORDERED: GLUCOSE 10 TAB/TUBE PO PRN (19:43)
[2024-02-17] MEDS ORDERED: GLUCAGON FOR INJ 1 MG VIAL SQ PRN (19:43)
[2024-02-17] MEDS ORDERED: DEXTROSE 50% 50 ML SYRINGE IV PRN (19:43)
[2024-02-17] MEDS: INSULIN ASPART PER UNIT CHARGE SC SCH (20:27)
[2024-02-17] MEDS: cefTRIAXone SODIUM 2,000 MG/50 ML BAG IV STA (20:31)
[2024-02-17] MEDS: MAGNESIUM SULFATE / D5W 1 GM/100 ML BAG IV SCH (21:08)
--- NOTE | 2024-02-17 21:20 | CT Scan Report ---
Exam(s): CT ABDOMEN + PELVIS Without Contrast EXAM: CT Abdomen and Pelvis Without Intravenous Contrast CLINICAL HISTORY: Reason for exam: LOU; recent obstructive stone. TECHNIQUE: Axial computed tomography images of the abdomen and pelvis without intravenous contrast. CTDI is 28.12 mGy and DLP is 1540.72 mGy-cm. Automated exposure control was utilized for the study. A dose lowering technique was utilized adhering to the principles of ALARA. COMPARISON: 02/15/2024 FINDINGS: Lung bases: Unremarkable. No mass. No consolidation. ABDOMEN: Liver: Unremarkable. Gallbladder and bile ducts: Unremarkable. No calcified stones. No ductal dilation. Pancreas: Unremarkable. No ductal dilation. Spleen: Unremarkable. No splenomegaly. Adrenals: Unremarkable. No mass. Kidneys and ureters: mild left periureteral and perinephric stranding with left-sided hydronephrosis secondary to a 0.4 cm distal left ureteral calculus allowing for subtle differences in technique the stone has slightly migrated distally and is closer to the UVJ and on the prior exam. No right-sided hydronephrosis. Stomach and bowel: Unremarkable. No obstruction. No mucosal thickening. PELVIS: Appendix: No findings to suggest acute appendicitis. Bladder: Unremarkable. No stones. Reproductive: Unremarkable as visualized. ABDOMEN and PELVIS: Intraperitoneal space: Unremarkable. No free air. No significant fluid collection. Bones/joints: No acute fracture. No dislocation. Soft tissues: Unremarkable. Vasculature: Unremarkable. No abdominal aortic aneurysm. Lymph nodes: Unremarkable. No enlarged lymph nodes. IMPRESSION: Left-sided hydronephrosis with perinephric and periureteral stranding secondary to a distal left ureteral calculus. This has migrated slightly since the prior exam. Electronically signed by: Stu Paulino MD 02/17/24 21:19 PM
[2024-02-17] MEDS: LACTATED RINGER'S 1,000 ML IV SCH (21:44)
[2024-02-17] MEDS: LANTUS PER UNIT CHARGE SQ SCH (21:44)
--- NOTE | 2024-02-17 22:41 | Urology Consultation ---
Date of Consultation February 17, 2024 Assessment & Plan (1) Calculus of distal left ureter: (2) Hydronephrosis: (3) LOU (acute kidney injury): (4) Acute hyperkalemia: (5) Hydronephrosis: (6) Poorly controlled type 2 diabetes mellitus: (7) Hypertension: (8) Obesity: (9) Metabolic syndrome: Plan Patient admitted for severe LOU on CKD with multiple comorbidities. Patient had been found to have obstructing stone in the distal ureter on the left. Was causing significant pain down into the groin and testicle. Was coming in waves was severe in nature and causing increasing issues. Patient had been seen earlier in the week but left. Had returned after his PCP is found that his LOU had significantly worsened. There was concern for electrolyte abnormalities. Patient was having some hypertensive issues. Has been admitted and undergoing a hydration and close monitoring with supportive care. Has previously had significant stones however was able to pass them in the past. His last stone was 10 to 15 years ago. He has never follow-up with urology and has never undergone workup. Had previously been able to pass stones that time and as well as the time before that. Patient has not seen any blood in the urine. Has had continued pressure and discomfort in the pelvis. The severity of the pain has some to decrease. The repeat imaging have been completed. Imaging have been reviewed interpreted by myself. Does have what appears to be a an obstructing stone in the distal ureter approximately 4 mm in size with hydronephrosis. Stone did not appear to significantly move since last imaging. Patient does have significant LOU. All labs and vitals had been thoroughly reviewed. Creatinine had been significantly elevated at 2.27. White count 8.09. Patient had PSA number years ago which was 0.986. Hemoglobin 13.2. All other vitals and labs were reviewed pertinent values in the HPI or plan section. Patient's vitals are currently stable with mild hypertension at 152/74. Pulse is 88. Respirations 18. Temperature currently 36.5. Oxygen saturation 96% on room air. Patient was eating in his room tolerating diet without major issue was not having considerable nausea or vomiting. Patient's complicated medical and surgical history was reviewed and summarized above. All social and family history was also reviewed. Patient's previous issues had also been discussed extensively with patient. Reviewed different options moving forward. Discussed supportive care with hydration and close monitoring. Will need to monitor renal function over time especially with the possible electrolyte abnormalities. Will plan to continue with hydration protocols and expulsive therapy to try to spontaneously passed stone. Is 4 mm which has a high chance of spontaneous passage. If creatinine worsens if major electrolyte abnormalities develop if patient develops any signs of sepsis or hypotension would consider intervention on stone possibly with stent placement. Patient developed significant fevers or concern for developing sepsis would also consider emergent/urgent intervention such as stent placement. At this point we will plan to continue with supportive care. This was thoroughly discussed with patient. All questions were answered. Will plan to continue to monitor. If patient does have significant issues would likely plan on possible intervention as soon as tomorrow. Will have patient n.p.o. at midnight with plans for possible intervention if electrolyte abnormalities or LOU significantly worsened and stone does not appear to pass. Will plan to continue with supportive care otherwise. History of Present Illness Attending Physician: Codi Huston, DO History of Present Illness New consultation for patient with stone, discomfort, obstruction, and ill feelings. Patient developed sudden onset of pain into flank going down and radiating into groin and back in waves comes and goes. Can be severe at times. Patient has previously had stone disease. Approximately 15 years ago had passed the stone on his own. Patient had been seen earlier in the week with the stone had significant LOU at that time. Patient apparently left the ER with the LOU however was sent back to the ER by his PCP due to worsening renal function. Patient has been having ongoing episodes of pain and discomfort. Had pain down into the left testicle. Had been severe coming in waves. This is somewhat relieved but is having chronic pressure and discomfort in the abdomen and pelvis with pressure into the pelvic region. Was worried about possible constipation issues. Discussed and reviewed patient's family history for any history of stone disease. Also, discussed patient's medical surgery history especially related to any history of urinary issues or stone disease. Patient was admitted and is undergoing observation. Allergies Allergy/AdvReac Type Severity Reaction Status Date / Time morphine Allergy "I felt Verified 02/17/24 13:47 like I was falling" Home Medications Medication Instructions Recorded Confirmed Type blood sugar diagnostic (Prodigy No #10 ea 03/01/19 02/17/24 History Coding strips) cholecalciferol (vitamin D3) 125 2,000 unit PO DAILY 02/10/22 02/17/24 History mcg (5,000 unit) capsule Admelog SoloStar U-100 Insulin 100 1 sliding scale dose subcut 09/03/23 02/17/24 Rx Insulin lispro 100 unit/mL USEASDIRECTD #15 mL subcutaneous pen (insulin lispro) metformin 500 mg tablet 1,000 mg (2 x 500 mg) PO BID 90 10/04/23 02/17/24 Rx days #120 tabs pioglitazone 15 mg tablet (Actos) 15 mg PO DAILY #30 tabs 11/11/23 02/17/24 Rx rosuvastatin 40 mg tablet 40 mg PO DAILY #30 tabs 11/23/23 02/17/24 Rx dulaglutide 0.75 mg/0.5 mL 0.75 mg (0.5 mL) subcut Q7D #6 mL 12/15/23 02/17/24 Rx subcutaneous pen injector ([facility]) BD Ultra-Fine Jazmine Pen Needle 32 #200 ea 02/02/24 02/17/24 Rx gauge x 5/32" (pen needle, diabetic) chromium picolinate 200 mcg tablet 0 mcg PO DAILY 02/15/24 02/17/24 History ciprofloxacin HCl 500 mg tablet 500 mg PO Q12H #20 tabs 02/15/24 02/17/24 Rx (Cipro) cyanoco,mecobalamin 1,000 1 tab PO DAILY 02/15/24 02/17/24 History mcg-folic acid 200 mcg disintegrating tablet insulin glargine 100 unit/mL (3 54 unit subcut QAM 02/15/24 02/17/24 History mL) subcutaneous pen (Lantus Solostar U-100 Insulin) levothyroxine 125 mcg capsule 125 mcg PO DAILYBB 02/15/24 02/17/24 History lisinopril 10 mg tablet 10 mg PO QAM 02/15/24 02/17/24 History mecobalamin (vitamin B12) 1,000 1,000 mcg PO DAILY 02/15/24 02/17/24 History mcg disintegrating tablet,sublingual tamsulosin 0.4 mg capsule (Flomax) 0.4 mg PO DAILY #10 caps 02/15/24 02/17/24 Rx zinc gluconate 50 mg tablet 100 mg PO DAILY 02/15/24 02/17/24 History Patient History Medical History Pulmonary embolism 1983 Type II diabetes with halfway use of insulin Diverticulosis Recurrent kidney stones Osteoarthritis of knees, bilateral Surgical History Hx of appendectomy 1977 Family History Mother Diabetes Breast cancer Father Hypertension Sister Breast cancer Diabetes Grandfather Myocardial infarction Denies family history of Ovarian cancer Prostate cancer Colorectal cancer Social History Smoking Status: Never smoker Second Hand Exposure: Yes; Do You Dip or Chew Tobacco: No; Hx Alcohol Use: Yes (wine twice a year) Hx Substance Use: No Preferred Language: Luxembourgish Visual Impairment: Partially Limited Hearing Ability: Normal Beliefs That Will Affect Care: None marital status: Current Living Situation: Alone current occupational status: retired current occupation: retired [employer] officer, 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 Obese HEENT: Normocephalic Atraumatic. Inspection normal. Cranial Nerves 2-12 Grossly intact. Nares are clear. Neck is supple. Normal inspection of face. Normal inspection of neck. Neurologic: No deficits on inspection. Baseline for motor function and sensory. Psychologic: Normal affect. Respiratory: Nonlabored. No use of accessory muscles. No tachypnea or dyspnea. Cardiovascular: No tachycardia Skin: [place] and Dry. No rashes or visible lesions. Extremities: Moving without issues. No motor deficits on inspection Lymphatics: No edema Abdomen: Soft Non-distended. No rebound or guarding. Results & Data Vital Signs (Past 12 Hours) Vital Signs Temp Pulse Pulse Resp BP BP Pulse Ox 02/17/24 21:40 36.5 C 88 18 152/74 H 96 02/17/24 21:00 79 20 147/77 H 97 02/17/24 19:30 78 16 95/82 L 98 02/17/24 17:29 94 H 18 98 02/17/24 17:25 91 H 02/17/24 17:22 90 18 124/65 98 02/17/24 16:33 36.9 C 107 H 18 129/75 96 O2 Del Method 02/17/24 21:40 Room Air 02/17/24 21:00 Room Air 02/17/24 19:30 Room Air 02/17/24 17:29 Room Air 02/17/24 17:25 02/17/24 17:22 Room Air 02/17/24 16:33 Room Air PG Care Time/CCT Total # of Minutes Spent Total Time Spent with Patient: Total time spent is greater than 50% in coordination of care (as documented) at patient's floor/unit and/or counseling patient: Coding Level of Care Code 49407 INT INP/OBS CARE 3/75MIN Diagnoses Calculus of distal left ureter N20.1 Hydronephrosis N13.30 LOU (acute kidney injury) N17.9 Acute hyperkalemia E87.5 Poorly controlled type 2 diabetes mellitus E11.65 Hypertension I10 Obesity E66.9 Metabolic syndrome E88.81
[2024-02-17] MEDS: ACETAMINOPHEN 325 MG TAB PO PRN (23:45)
[2024-02-18] MEDS: TAMSULOSIN HCL 0.4 MG CAP PO ONE (01:55)
[2024-02-18] MEDS: ROSUVASTATIN CALCIUM 20 MG TAB PO STA (01:55)
[2024-02-18] MEDS: LEVOTHYROXINE SODIUM 125 MCG TABLET PO SCH (05:59)
--- NOTE | 2024-02-18 08:36 | Electrocardiogram Report ---
Test Reason : Blood Pressure : */* mmHG Vent. Rate : 103 BPM Atrial Rate : 103 BPM P-R Int : 132 ms QRS Dur : 84 ms QT Int : 328 ms P-R-T Axes : 40 -15 26 degrees QTcB Int : 429 ms Sinus tachycardia Otherwise normal ECG When compared with ECG of 23-Oct-1998 22:42, No significant change was found Confirmed by Sadiq Gibson ([id number]) on 02/18/2024 8:36:13 AM Referred By: REFERRED SELF Confirmed By: Sadiq Gibson
[2024-02-18 08:51] LABS: Basophils # (auto) 0.03 K/uL (0.00-0.20); Basophils % (auto) 0.4 %; Eosinophils # (auto) 0.18 K/uL (0.00-0.50); Eosinophils % (auto) 2.6 %; Hematocrit (blood only) 36.7 % (42.0-52.0); Hemoglobin 11.7 g/dl (14.0-18.0); Immature Granulocytes # (auto) 0.03 K/uL (0.01-0.20); Immature Granulocytes % (auto) 0.4 %; Lymphocytes # (auto) 1.62 K/uL (1.20-3.40); Lymphocytes % (auto) 23.4 %; Mean Corpuscular Hemoglobin 29.5 pg (25.0-34.0); Mean Corpuscular Hgb Conc 31.9 g/dL (32.0-36.0); Mean Corpuscular Volume 92.4 fL (80.0-100.0); Mean Platelet Volume 10.9 fL (9.4-12.4); Monocytes # (auto) 0.66 K/uL (0.11-0.59); Monocytes % (auto) 9.5 %; Neutrophils % (auto) 63.7 %; Platelet Count 119 K/uL (130-400); RDW Coefficient of Variation 12.9 % (11.5-14.5); RDW Standard Deviation 43.8 fL (36.4-46.3); Red Blood Count 3.97 M/uL (4.70-6.10); White Blood Count 6.92 K/ul (4.8-10.8)
[2024-02-18 09:06] LABS: BUN Creatinine Ratio 14.3 (10-20); Calcium 8.2 mg/dl (8.6-10.3); Creatinine Clr Calc Pharmacy 39.9 ml/min; Est GFR (African American) 31.3 ml/min; Potassium 4.8 mmol/L (3.5-5.1)
--- NOTE | 2024-02-18 10:02 | Urology Progress Note ---
Date of Service February 18, 2024 Assessment & Plan (1) Calculus of distal left ureter: (2) Hydronephrosis: (3) LOU (acute kidney injury): Plan Afebrile and hemodynamically stable. Labs today show creatinine up to 2.38, no leukocytosis. Urine culture 02/14 negative; blood culture pending. Given his worsening renal function, will proceed to OR today for cystoscopy, left retrograde pyelogram, left ureteral stent placement, possible ureteroscopy and stone treatment. Risks and benefits to be reviewed with patient by Dr. Wright. Keep NPO. Continue supportive care. Patient had ceftriaxone in the ED last night around 9PM. Urology to follow. Attending note: Patient independently assessed, examined, interviewed, and evaluated. Patient with obstructing stone with increasing creatinine. Likely multifactorial however obstructing stone in the left distal ureter likely contributing. Agree with note as above. Patient's vitals and labs were all reviewed. Pertinent values in the HPI and plan section. Imaging was reviewed interpreted by myself. Agree with read. Vitals were reviewed. Discussed findings extensively with patient and family. Reviewed with nurse practitioner as well as consulting physicians/team. Patient's complicated medical and surgical history was reviewed and summarized above. Patient's surgical, medical, social, and family history were all reviewed with pertinent values as above. Discussed patient's current diagnosis as well as concerns and issues. Reviewed different options moving forward. Discussed potential risks and benefits as well as possible options and concerns. Reviewed potential surgical options and interventions. Discussed potential issues and concerns related to intervention. Risk and benefits were discussed extensively with patient and any available family. Discussed potential risks related to anesthesia. Discussed risks of bleeding infection and injury. Reviewed extensively risk and benefits of procedure. Discussed possible interaction. Discussed problems and concerns. Discussed possible stent placement for stone treatment. Will plan to move forward with left retrograde pyelogram possible ureteroscopy and stone treatment. Risks and benefits discussed at length for procedure. These include bleeding, infection, injury to surrounding tissues or organs, and risks associated with anesthesia. Patient states understanding and agrees to proceed. Will sign consent and proceed. Plan to continue with supportive care hydration and close monitoring. Will move forward with stone treatment and evaluate kidney function after treatment Plan for cystoscopy with possible left ureteroscopy laser lithotripsy stone basket extraction and stent placement Admission and Anticipated Discharge Date Admission Date: February 17, 2024 Subjective Pt seen at bedside this AM. Awake, resting in bed on arrival. No acute distress. Denies noticeable stone passage. No fevers. Has been NPO. Review of Systems Constitutional: as per Subjective / HPI Genitourinary: + as per Subjective / HPI Physical Exam Constitutional: no acute distress Respiratory: no respiratory distress and no labored breathing Skin: No visible rashes or lesions to exposed skin areas Neurologic: moves all extremities and awake Psychiatric: A+Ox3, euthymic affect Results & Data Vital Signs (Past 12 Hours) Vital Signs Temp Pulse Pulse Pulse Resp BP Pulse Ox 02/18/24 07:19 36.6 C 71 18 147/85 H 95 02/18/24 02:49 37.1 C 83 20 121/56 L 93 02/18/24 01:25 80 02/17/24 22:44 36.5 C 88 20 152/74 H 96 02/17/24 21:40 36.5 C 88 18 152/74 H 96 02/17/24 21:39 99 H 02/17/24 21:00 79 20 147/77 H 97 O2 Del Method 02/18/24 07:19 Room Air 02/18/24 02:49 Room Air 02/18/24 01:25 02/17/24 22:44 Room Air 02/17/24 21:40 Room Air 02/17/24 21:39 02/17/24 21:00 Room Air PG Care Time/CCT Total # of Minutes Spent Total Time Spent with Patient: Total time spent is greater than 50% in coordination of care (as documented) at patient's floor/unit and/or counseling patient: Coding Level of Care Code 14613 SUB INP/OBS CARE 2/35MIN Diagnoses Calculus of distal left ureter N20.1 Hydronephrosis N13.30 LOU (acute kidney injury) N17.9
--- NOTE | 2024-02-18 10:17 | Anesthesiology Consultation ---
Date of Service February 18, 2024 Assessment & Plan (1) Encounter for pre-operative examination: Chart Review Chart Review: Acceptable Risk for Surgery and Patient NOT seen in Pre Admission Testing Consults Requested none History Surgery Operation Date: 02/18/24 08:00 Proposed Procedures p Cystoscopy, Left Retrograde Pyelogram, Left Stent Placement, Possible Ureteroscopy, Laser Lithotripsy Stone Treatment - Ronaldo Wright, DO Height/Weight Height: 5 ft 10 in Weight: 127.7 kg Allergies Allergy/AdvReac Type Severity Reaction Status Date / Time morphine Allergy "I felt Verified 02/17/24 13:47 like I was falling" Medications Home Medications Medication Instructions Recorded Confirmed Last Taken blood sugar diagnostic (Prodigy No #10 ea 03/01/19 02/17/24 Unknown Coding strips) cholecalciferol (vitamin D3) 125 2,000 unit PO DAILY 02/10/22 02/17/24 Unknown mcg (5,000 unit) capsule Admelog SoloStar U-100 Insulin 100 1 sliding scale dose subcut 09/03/23 02/17/24 02/17/24 Insulin lispro 100 unit/mL USEASDIRECTD #15 mL subcutaneous pen (insulin lispro) metformin 500 mg tablet 1,000 mg (2 x 500 mg) PO BID 90 10/04/23 02/17/24 02/17/24 days #120 tabs pioglitazone 15 mg tablet (Actos) 15 mg PO DAILY #30 tabs 11/11/23 02/17/24 Unknown rosuvastatin 40 mg tablet 40 mg PO DAILY #30 tabs 11/23/23 02/17/24 Unknown dulaglutide 0.75 mg/0.5 mL 0.75 mg (0.5 mL) subcut Q7D #6 mL 12/15/23 02/17/24 02/17/24 subcutaneous pen injector ([facility]) BD Ultra-Fine Jazmine Pen Needle 32 #200 ea 02/02/24 02/17/24 Unknown gauge x 5/32" (pen needle, diabetic) chromium picolinate 200 mcg tablet 0 mcg PO DAILY 02/15/24 02/17/24 Unknown ciprofloxacin HCl 500 mg tablet 500 mg PO Q12H #20 tabs 02/15/24 02/17/24 02/17/24 (Cipro) cyanoco,mecobalamin 1,000 1 tab PO DAILY 02/15/24 02/17/24 Unknown mcg-folic acid 200 mcg disintegrating tablet insulin glargine 100 unit/mL (3 54 unit subcut QAM 02/15/24 02/17/24 02/17/24 mL) subcutaneous pen (Lantus Solostar U-100 Insulin) levothyroxine 125 mcg capsule 125 mcg PO DAILYBB 02/15/24 02/17/24 02/17/24 lisinopril 10 mg tablet 10 mg PO QAM 02/15/24 02/17/24 02/17/24 mecobalamin (vitamin B12) 1,000 1,000 mcg PO DAILY 02/15/24 02/17/24 Unknown mcg disintegrating tablet,sublingual tamsulosin 0.4 mg capsule (Flomax) 0.4 mg PO DAILY #10 caps 02/15/24 02/17/24 02/17/24 zinc gluconate 50 mg tablet 100 mg PO DAILY 02/15/24 02/17/24 Unknown Active Medications Generic Name Dose Route Start Last Admin Trade Name Demetriusq PRN Reason Stop Dose Admin Acetaminophen 650 mg 02/17/24 19:43 02/17/24 23:45 Acetaminophen 325 Mg Tab PO 03/18/24 19:42 650 mg Q6H PRN Administration pain(1-4),headache,fever Lactated Ringer's 1,000 mls @ 100 mls/hr 02/17/24 21:00 02/18/24 07:33 Lr IV 02/18/24 16:59 100 mls/hr .Q10H FELICITAS Administration Insulin Aspart 0 units 02/17/24 19:45 02/18/24 06:02 Insulin Aspart Per Unit Charge SC 03/18/24 19:44 Not Given Q6 FELICITAS Insulin Glargine 20 units 02/17/24 21:00 02/17/24 21:44 Lantus Per Unit Charge SQ 03/18/24 20:59 Not Given BID FELICITAS Levothyroxine Sodium 125 mcg 02/18/24 06:30 02/18/24 05:59 Levothyroxine Sodium 125 Mcg Tablet PO 03/19/24 06:29 125 mcg DAILYBB FELICITAS Administration Past Medical History Medical History Pulmonary embolism 1983 Type II diabetes with intermission coordinator use of insulin Diverticulosis Recurrent kidney stones Osteoarthritis of knees, bilateral Past Family History Family History Mother Diabetes Breast cancer Father Hypertension Sister Breast cancer Diabetes Grandfather Myocardial infarction Denies family history of Ovarian cancer Prostate cancer Colorectal cancer Past Surgical History Surgical History Hx of appendectomy 1978 Social History Smoking Status: Never smoker Do You Dip or Chew Tobacco: No Hx Alcohol Use: No Hx Substance Use: No Physical Exam Vital Signs Last Vital Signs Temp 97.9 F 02/18/24 07:19 Pulse 71 02/18/24 07:19 Resp 18 02/18/24 07:19 BP 147/85 H 02/18/24 07:19 Pulse Ox 95 02/18/24 07:19 O2 Del Method Room Air 02/18/24 07:19 Testing Laboratory Results 02/18/24 08:05 02/18/24 08:05 PT 11.2 Seconds (9.0-12.0) 02/17/24 16:39 INR 1.0 (0.9-1.1) 02/17/24 16:39 APTT 26 Seconds (21-31) 02/17/24 16:39 Urine Color Yellow 02/17/24 17:20 Urine Appearance Clear (Clear) 02/17/24 17:20 Urine pH 5.0 (4.5-7.5) 02/17/24 17:20 Ur Specific [place] 1.025 (1.000-1.030) 02/17/24 17:20 Urine Protein 2+ (Negative) H 02/17/24 17:20 Urine Glucose (UA) 3+ (Negative) H 02/17/24 17:20 Urine Ketones Trace (Negative) H 02/17/24 17:20 Urine Nitrite Negative (Negative) 02/17/24 17:20 Ur Leukocyte Esterase Negative (Negative) 02/17/24 17:20 Urine WBC (Auto) 0-5 /hpf (0-5) 02/17/24 17:20 Urine RBC (Auto) 0-2 /hpf (0-2) 02/17/24 17:20 U Hyaline Cast (Auto) 3-5 /lpf (0-2) H 02/17/24 17:20 U Epithel Cells (Auto) 0-2 /hpf (0-2) 02/17/24 17:20 Urine Bacteria (Auto) None Seen (None Seen) 02/17/24 17:20 02/18/24 02/18/24 02/17/24 10:04 05:57 23:44 POC Glucose 133 H 148 H 108 H
[2024-02-18] MEDS ORDERED: MIDAZOLAM HCL 1 MG/ML 2ML VIAL ONE (10:29)
[2024-02-18] MEDS ORDERED: fentaNYL citrate PF 100 MCG/2 ML VIAL ONE (10:29)
[2024-02-18] MEDS ORDERED: LIDOCAINE 2% 2 ML VIAL/AMP(20MG/ML) INFIL ONE (10:29)
[2024-02-18] MEDS ORDERED: SUCCINYLCHOLINE CHLORIDE 20 MG/ML 10 ML VIAL IV ONE (10:29)
[2024-02-18] MEDS ORDERED: PROPOFOL IV EMULSION 10 MG/ML 20 ML VIAL IV ONE (10:29)
[2024-02-18] MEDS ORDERED: ONDANSETRON INJ 2 MG/ML 2 ML VIAL ONE (10:29)
--- NOTE | 2024-02-18 10:37 | Hospitalist Progress Note ---
Date of Service February 18, 2024 Assessment & Plan (1) LOU (acute kidney injury): Plan: Hydronephrosis due to left ureteral stone. Admit to med/tele Currently stable nontoxic-appearing Presented back to the ED for the second time in the past 48 hours due to nalini oing symptoms related to his known obstructive 3 mm left ureteral kidney stone causing hydronephrosis and LOU Patient's urine on 02/15/2024 appeared infected, was given a dose of ceftriaxone and has been taking p.o. ciprofloxacin since discharge home. Creatinine continues to rise, currently at 2.27 (baseline zero 1.3) -creatinine worsened on 02/17, this prompted Urology to take patient to the OR for stent placement and possible stone removal (2) Hydronephrosis: Plan: Patient with left hydroureteronephrosis due to 3 mm obstructing left ureteral stone Urology has been consulted Will continue Flomax and order urine strainer Rest of care per LOU plan (3) Poorly controlled type 2 diabetes mellitus: Plan: Will monitor BSG every 6 hours while NPO, goal is [id number] Normally takes 54 units SQ Lantus in the a.m., will convert to 20 units twice daily for now as we unsure how much he will be eating Start CF of 35 and CR of 12 every 6 hours Adjust regimen as needed (4) Hypertension: Plan: Currently stable Holding lisinopril for now with LOU Resume lisinopril when renal function is stable (5) Hypothyroid: Plan: Continue levothyroxine Admission and Anticipated Discharge Date Admission Date: February 17, 2024 Subjective Patient reports no new symptoms. Review of Systems Review of Systems: All systems reviewed & are unremarkable except as noted in HPI & below Physical Exam Physical Exam: General: In no acute distress, stated age, well-nourished, Nontoxic-appearing HEENT: Normocephalic, atraumatic, no scleral icterus, pupils around round, symmetrical, and reactive to light, moist mucus membranes, trachea midline, no thyromegaly Chest/Pulm: No respiratory distress, symmetrical chest expansion, clear breath sounds throughout Cardiac: RRR, no murmurs noted Abdomen: Negative for ascites and bruising, normoactive bowel sounds, soft, non-tender to palpation throughout : Negative CVA tenderness bilaterally Musculoskeletal: Symmetrical and without signs of acute trauma, upper and lower extremities with full ROM, no atrophy, spasticity, or flaccidity Extremities: Radial, dorsalis pedis, and posterior tibial pulses are intact and symmetrical, no edema noted in the BL LE's Skin: Warm, dry, no rashes , lesions, or scars noted Neuro: Alert and oriented to person, place, month, year, and president, no focal defects, no tremors noted Psych: No acute distress, calm and cooperative during the exam Results & Data Results & Data Vital Signs (Past 12 Hours) Vital Signs Temp Pulse Pulse Resp BP Pulse Ox O2 Del Method 02/18/24 07:19 36.6 C 71 18 147/85 H 95 Room Air 02/18/24 05:56 77 02/18/24 02:49 37.1 C 83 20 121/56 L 93 Room Air 02/18/24 01:25 80 02/17/24 22:44 36.5 C 88 20 152/74 H 96 Room Air PG Care Time/CCT Total # of Minutes Spent Total Time Spent with Patient: Total time spent is greater than 50% in coordination of care (as documented) at patient's floor/unit and/or counseling patient: Coding Level of Care Code 89918 SUB INP/OBS CARE 235MIN Diagnoses LOU (acute kidney injury) N17.9 Hydronephrosis N13.30 Hydronephrosis type: unspecified Poorly controlled type 2 diabetes mellitus E11.65 Hypertension I10 Hypothyroid E03.9 (2) Hydronephrosis Hydronephrosis type: unspecified Qualified Code(s): N13.30 - Unspecified hydronephrosis
[2024-02-18] MEDS ORDERED: ONDANSETRON INJ 2 MG/ML 2 ML VIAL IV PRN (10:47)
[2024-02-18] MEDS ORDERED: ePHEDrine sulfate 50 MG/ML AMP IV PRN (10:47)
[2024-02-18] MEDS ORDERED: ATROPINE SULFATE 0.1 MG/ML 10ML SYR IV PRN (10:47)
[2024-02-18] MEDS: LACTATED RINGER'S 1,000 ML IV SCH (10:50)
[2024-02-18] MEDS ORDERED: SUGAMMADEX SODIUM 200 MG/2 ML VIAL IV ONE ×2 (11:29→11:38)
--- NOTE | 2024-02-18 11:36 | Operative Report ---
PG Post Operative Report Pre & Post Diagnosis Operation Date: 02/18/24 08:00 Pre-Op Diagnosis: (1) Calculus of distal left ureter (2) Hydronephrosis (3) LOU (acute kidney injury) Post-Op Diagnosis: (1) Calculus of distal left ureter (2) Hydronephrosis (3) LOU (acute kidney injury) I identified the patient and participated in the time-out.: Yes Procedure Operation Date: 02/18/24 08:00 Actual Procedures p Cystoscopy with Left Retrograde Pyelogram, Left Stent Placement, Left Ureteroscopy, ureteral dilation, and Basket Extraction of Stone - Ronaldo Wright DO Surgeon Ronaldo Wright, II, DO Incident Handler None Estimated Blood Loss 1 Findings Consistent with Post-Op Diagnosis Narrowing at the distal ureter/UO with stone just proximal. Ureter dilated. St one basketed and removed. Specimens Stone Left Ureter Drains 6 Fr x 26 cm Anesthesia Type General Complications none Disposition Disposition: Recovery Room Indications Patient with bothersome stones and significant LOU. Risks and benefits discussed at length. Description of Procedure Patient was consented and brought back to the operating room. Patient was placed under anesthesia in the supine position and moved to the dorsal lithotomy position. Patient was prepped and draped in the regular sterile fashion. A time out was completed. A 30degree Cystoscope was placed into the bladder and the entire bladder was examined. The UO's were identified. The UO was cannulized with a catheter and a retrograde pyelogram was completed. A wire was then placed. The Rigid ureteroscope was taken into the ureter. The stone was identified just proximal to narrowing in the distal ureter. The stone was displaced. The ureter was dilated. The scope advanced. With the basket, the stone was grasped and removed and sent for analysis. The entire area was once again examined. No residual large fragments or areas of concern were noted. The scope was slowly removed with the wire left in place. Contrast was placed through the scope for a pyelogram to assist in stent placement. The entire ureter was examined as the scope was slowly removed. No obstructions or other areas of concern were noted. With the wire in place, a 6 Fr Double J stent was placed. It was confirmed with fluoroscopy. With the stent in place, the bladder was emptied. The scope was removed. The patient was cleaned, aroused from anesthesia, and transferred to the pacu in stable condition having tolerated the procedure well with no complications. I was present and participated in all aspects of the procedure. The patient will be monitored in the PACU until transferred. Plan to maintain stent and monitor renal function. I attest to the content of the Intraoperative Record and any orders documented therein. Any exceptions are noted below.
[2024-02-18] MEDS: DIATRIZOATE MEGLUMINE 30% 100ML VIAL INSTIL PRN (11:39)
--- NOTE | 2024-02-18 13:18 | Fluoroscopy Report ---
FL retrograde includes kub CLINICAL HISTORY: LT SIDE RETROGRADE AND STENT PLACEMENTleft-sided cystourethrogram COMPARISON STUDY: CT 02/17/2024 FLUOROSCOPY TIME: 21.2 seconds FLUOROSCOPY IMAGES: 2 EXPOSURE DOSE: 13.21 mGy FINDINGS: A left-sided ureteral stent appears to be in satisfactory positioning. No definite ureteral calculi identified. IMPRESSION: Fluoroscopic assistance as above. ACT 112: Negative or not required by law. Electronically signed by: Fransisco Briscoe M.D. 02/18/2024 1:16 PM
[2024-02-18 13:54] VITALS: RESP 18
--- NOTE | 2024-02-18 14:54 | Anesthesiology Progress Note ---
Date of Service February 18, 2024 Anesthesia Post Procedure Vital Signs Vital Signs: Temp Pulse Pulse Pulse Resp BP BP 02/18/24 14:48 02/18/24 13:45 98.2 F 70 18 123/66 02/18/24 13:15 97.7 F 94 H 20 144/63 H 02/18/24 12:40 98.8 F 72 13 141/52 H 02/18/24 12:30 75 14 154/73 H 02/18/24 12:20 72 12 136/99 02/18/24 12:10 85 18 146/69 H 02/18/24 12:00 86 16 125/68 02/18/24 11:50 96.8 F L 92 H 21 125/71 02/18/24 10:43 98.2 F 72 20 145/84 H 02/18/24 07:19 97.9 F 71 18 147/85 H 02/18/24 05:56 77 02/18/24 02:49 98.7 F 83 20 121/56 L 02/18/24 01:25 80 02/17/24 22:44 97.7 F 88 20 152/74 H 02/17/24 21:40 97.7 F 88 18 152/74 H 02/17/24 21:39 99 H 02/17/24 21:00 79 20 147/77 H 02/17/24 19:30 78 16 95/82 L 02/17/24 17:29 94 H 18 02/17/24 17:25 91 H 02/17/24 17:22 90 18 124/65 02/17/24 16:33 98.4 F 107 H 18 129/75 Pulse Ox O2 Del Method 02/18/24 14:48 Room Air 02/18/24 13:45 96 Room Air 02/18/24 13:15 93 Room Air 02/18/24 12:40 96 Room Air 02/18/24 12:30 95 Room Air 02/18/24 12:20 96 Room Air 02/18/24 12:10 93 Room Air 02/18/24 12:00 96 Room Air 02/18/24 11:50 95 Room Air 02/18/24 10:43 97 Room Air 02/18/24 07:19 95 Room Air 02/18/24 05:56 02/18/24 02:49 93 Room Air 02/18/24 01:25 09/05/24 22:44 96 Room Air 02/17/24 21:40 96 Room Air 02/17/24 21:39 02/17/24 21:00 97 Room Air 02/17/24 19:30 98 Room Air 02/17/24 17:29 98 Room Air 02/17/24 17:25 02/17/24 17:22 98 Room Air 02/17/24 16:33 96 Room Air Pain Intensity Left Back: Pain Intensity: 4 Penis: Pain Intensity: 3 Transfer of Care Handoff Completed per policy Notes Mental Status: alert / awake / arousable and participated in evaluation Patient Amnestic to Procedure: Yes Nausea / Vomiting: adequately controlled Pain: adequately controlled Airway Patency, RR, SpO2: stable & adequate BP & HR: stable & adequate Hydration State: stable & adequate Anesthetic Complications: no major complications apparent and Pt Satisfied with anesthetic care
[2024-02-18] MEDS ORDERED: Nursing to Pharmacy Communication SCH (19:30)
[2024-02-18] MEDS: INSULIN ASPART PER UNIT CHARGE SC SCH (20:04)
[2024-02-18] MEDS: TAMSULOSIN HCL 0.4 MG CAP PO SCH (21:07)
[2024-02-19 06:08] LABS: Basophils # (auto) 0.05 K/uL (0.00-0.20); Basophils % (auto) 0.6 %; Eosinophils # (auto) 0.21 K/uL (0.00-0.50); Eosinophils % (auto) 2.7 %; Hematocrit (blood only) 34.4 % (42.0-52.0); Hemoglobin 11.3 g/dl (14.0-18.0); Immature Granulocytes # (auto) 0.02 K/uL (0.01-0.20); Immature Granulocytes % (auto) 0.3 %; Lymphocytes # (auto) 2.45 K/uL (1.20-3.40); Lymphocytes % (auto) 31.8 %; Mean Corpuscular Hemoglobin 30.1 pg (25.0-34.0); Mean Corpuscular Hgb Conc 32.8 g/dL (32.0-36.0); Mean Corpuscular Volume 91.5 fL (80.0-100.0); Mean Platelet Volume 10.8 fL (9.4-12.4); Monocytes % (auto) 10.4 %; Neutrophils # (auto) 4.17 K/uL (1.40-6.50); Neutrophils % (auto) 54.2 %; Platelet Count 132 K/uL (130-400); RDW Coefficient of Variation 12.8 % (11.5-14.5); RDW Standard Deviation 43.2 fL (36.4-46.3); Red Blood Count 3.76 M/uL (4.70-6.10)
[2024-02-19 06:27] LABS: BUN Creatinine Ratio 14.3 (10-20); Calcium 8.5 mg/dl (8.6-10.3); Est GFR (African American) 32.4 ml/min; Magnesium 1.9 mg/dl (1.7-2.4); Potassium 4.7 mmol/L (3.5-5.1)
[2024-02-19 07:49] VITALS: PULSE 60
--- NOTE | 2024-02-19 10:27 | Urology Progress Note ---
Date of Service February 19, 2024 Assessment & Plan (1) Calculus of distal left ureter: Plan Status post ureteroscopy, stone extraction and stent placement yesterday Doing well overall Stable for discharge home We will arrange outpatient follow-up, no further inpatient intervention indicated Admission and Anticipated Discharge Date Admission Date: February 17, 2024 Subjective Substantial improvement from yesterday to today He is tolerating his stent well He has not had perfect correction of his creatinine yet but I anticipate this will occur over the next several days Subjectively much better Results & Data Vital Signs (Past 12 Hours) Vital Signs Temp Pulse Pulse Resp BP Pulse Ox O2 Del Method 02/19/24 07:48 36.5 C 60 18 129/78 94 Room Air 02/19/24 07:00 62 02/19/24 04:35 36.8 C 70 18 132/70 93 Room Air 02/19/24 01:27 Room Air 02/18/24 23:21 37.2 C 79 18 143/74 H 96 Room Air 02/18/24 23:00 70 PG Care Time/CCT Total # of Minutes Spent Total Time Spent with Patient: Total time spent is greater than 50% in coordination of care (as documented) at patient's floor/unit and/or counseling patient: Coding Level of Care Code 02912 SUB INP/OBS CARE /25MIN Diagnoses Calculus of distal left ureter N20.1
[2024-02-19 11:35] VITALS: BP 132/76; TEMP 97.9; O2SAT 95
== END 2024-02-19 13:35 | disposition home or self-care (01) ==
LOC: ED 16:21 → 2W 16:21 → SUATTDRO 19:41 → 2W 21:29